=== PATIENT | female | born 2000 | race Caucasian/White ===

== ENCOUNTER 2019-05-06 19:49 | Emergency (ER) | payer BC ==
--- NOTE | 2019-05-06 20:35 | EDM.PDOC ---
ED HPI GENERAL MEDICAL PROBLEM - General Chief Complaint: Respiratory Problem Stated Complaint: FLU SYMPTOMS Time Seen by Provider: 05/06/19 20:32 Source of Information: Reports: Patient History Limitations: Reports: No Limitations - History of Present Illness INITIAL COMMENTS - FREE TEXT/NARRATIVE: 19 y Old female presents to the emergency room with a chief complaint of sore throat nasal discharge and cough with green sputum Onset: Gradual Duration: Week(s):, Getting Worse Severity: Mild Improves with: Reports: None Worsens with: Reports: None Associated Symptoms: Reports: cough w sputum - Related Data Allergies Allergy/AdvReac Type Severity Reaction Status Date / Time No Known Allergies Allergy Verified 05/06/19 20:29 Home Meds: Home Meds . [No Known Home Meds] 05/06/19 [History] ED ROS GENERAL - Review of Systems Review Of Systems: Comprehensive ROS is negative, except as noted in HPI. Constitutional: Reports: No Symptoms HEENT: Reports: Throat Pain Respiratory: Reports: Cough Cardiovascular: Reports: No Symptoms Endocrine: Reports: No Symptoms GI/Abdominal: Reports: No Symptoms : Reports: No Symptoms Musculoskeletal: Reports: No Symptoms Skin: Reports: No Symptoms Neurological: Reports: No Symptoms Psychiatric: Reports: No Symptoms Hematologic/Lymphatic: Reports: No Symptoms Immunologic: Reports: No Symptoms ED EXAM, GENERAL - Physical Exam Exam: See Below Exam Limited By: No Limitations General Appearance: Alert, WD/WN, No Apparent Distress Eye Exam: Bilateral Eye: Normal Fundi, Normal Inspection Ears: Normal External Exam, Normal Canal, Hearing Grossly Normal, Normal TMs Ear Exam: Bilateral Ear: Auricle Normal, Canal Normal, TM normal Nose: Normal Inspection, Normal Mucosa Throat/Mouth: Normal Inspection, Normal Lips, Normal Teeth, Normal Oropharynx, Normal Voice Head: Atraumatic, Normocephalic Neck: Normal Inspection, Supple, Non-Tender, Full Range of Motion Respiratory/Chest: No Respiratory Distress, Lungs Clear, Normal Breath Sounds Cardiovascular: Normal Peripheral Pulses, Regular Rate, Rhythm, No Edema, No JVD GI/Abdominal: Normal Bowel Sounds (Female) Exam: Deferred Rectal (Female) Exam: Deferred Back Exam: Normal Inspection Extremities: Normal Inspection Psychiatric: Normal Affect, Normal Mood Skin Exam: Warm, Dry, Intact, Normal Color Lymphatic: No Adenopathy Course - Vital Signs Last Recorded V/S: Last Vital Signs Temp 97.1 F 05/06/19 20:29 Pulse 80 05/06/19 20:29 Resp 18 05/06/19 20:29 BP 113/73 05/06/19 20:29 Pulse Ox 98 05/06/19 20:29 Departure - Departure Time of Disposition: 05:14 Disposition: Home, Self-Care 01 Clinical Impression: Influenza - Discharge Information Instructions: Influenza, Adult Referrals: PCP,None [Primary Care Provider] - Forms: ED Department Discharge Sepsis Event Note - Focused Exam Vital Signs: Vital Signs Temp Pulse Resp BP Pulse Ox 05/06/19 20:29 97.1 F 80 18 113/73 98 Date Exam was Performed: 05/07/19 Time Exam was Performed: 05:13
== END 2019-05-06 21:36 | disposition left against medical advice (07) ==
LOC: MW.ED 19:49
DX: J11.1 Influenza due to unidentified influenza virus with other respiratory manifestations (principal)
CPT/HCPCS: 99282; 99283

== ENCOUNTER 2020-10-10 21:31 | Emergency (ER) | payer BC ==
--- NOTE | 2020-10-10 21:35 | EDM.PDOC ---
ED HPI GENERAL MEDICAL PROBLEM - General Chief Complaint: General Stated Complaint: SORE THROAT, COUGH, RUNNY NOSE Time Seen by Provider: 10/10/20 21:34 Source of Information: Reports: Patient History Limitations: Reports: No Limitations - History of Present Illness INITIAL COMMENTS - FREE TEXT/NARRATIVE: 20-year-old female no significant past medical history presents for sore throat, nasal congestion, nonproductive cough for the last several days. She denies loss of taste or smell. She has not been vaccinated against Covid. Notes mild chest pain when coughing, no shortness of breath. - Related Data Allergies Allergy/AdvReac Type Severity Reaction Status Date / Time No Known Allergies Allergy Verified 10/10/20 21:43 Home Meds: Home Meds . [No Known Home Meds] 05/06/19 [History] Past Medical History - Past Health History Medical/Surgical History: Denies Medical/Surgical History Social & Family History - Family History Family Medical History: No Pertinent Family History ED ROS GENERAL - Review of Systems Review Of Systems: Comprehensive ROS is negative, except as noted in HPI. ED EXAM, GENERAL - Physical Exam Exam: See Below Exam Limited By: No Limitations General Appearance: Alert, WD/WN, No Apparent Distress Ears: Hearing Grossly Normal Nose: Normal Inspection Throat/Mouth: Normal Inspection, Normal Lips, Normal Teeth, Normal Gums, Normal Oropharynx, Normal Voice, No Airway Compromise Head: Atraumatic, Normocephalic Neck: Normal Inspection Respiratory/Chest: No Respiratory Distress, Lungs Clear, Normal Breath Sounds, No Accessory Muscle Use Cardiovascular: Normal Peripheral Pulses, Regular Rate, Rhythm Extremities: Normal Inspection Neurological: Alert, Normal Cognition, Normal Gait Psychiatric: Normal Affect, Normal Mood Skin Exam: Warm, Dry, Intact, Normal Color Course - Vital Signs Last Recorded V/S: Last Vital Signs Temp 97.8 F 10/10/20 21:41 Pulse 73 10/10/20 21:41 Resp 16 10/10/20 21:41 BP 117/85 10/10/20 21:41 Pulse Ox 95 10/10/20 21:41 - Orders/Labs/Meds Orders: Active Orders 24 hr Category Date Time Status Penicillin G Benzathine [Bicillin L-A] Med 10/10/20 22:41 Once 1.2 millunits IM ONETIME ONE Labs: Laboratory Tests 10/10/20 10/10/20 Range/Units 21:49 21:55 Influenza Type A RNA NEGATIVE (NEGATIVE) Influenza Type B RNA NEGATIVE (NEGATIVE) SARS-CoV-2 RNA (SHERRIE) NEGATIVE (NEGATIVE) Group A Strep (PCR) DETECTED H (NOT DETECT) - Re-Assessments/Exams Free Text/Narrative Re-Assessment/Exam: 10/10/20 21:45 We will get Covid, flu, strep swabs. Will provide patient with resources for COVID-19 vaccination. 10/10/20 22:42 Covid test negative. Streptococcal pharyngitis test is positive. Will give Bicillin 1,200,000 units IM. Departure - Departure Time of Disposition: 22:42 Disposition: Home, Self-Care 01 Condition: Good Clinical Impression: Strep pharyngitis - Discharge Information Instructions: Pharyngitis Referrals: PCP,None [Primary Care Provider] - Forms: ED Department Discharge Additional Instructions: Your Covid and influenza swabs were all negative. You can use the website below to find a location that is giving out free COVID-19 vaccinations. COVID-19 vaccination is the best way to keep you, your family, and your community safe. https://www.health.[place].gov/covidvaccinelocator Your strep throat swab was positive. You were given a long acting penicillin shot for this. The following information is given to patients seen in the emergency department who are being discharged to home. This information is to outline your options for follow-up care. We provide all patients seen in our emergency department with a follow-up referral. The need for follow-up, as well as the timing and circumstances, are variable depending upon the specifics of your emergency department visit. If you don't have a primary care physician on staff, we will provide you with a referral. We always advise you to contact your personal physician following an emergency department visit to inform them of the circumstance of the visit and for follow-up with them and/or the need for any referrals to a consulting specialist. The emergency department will also refer you to a specialist when appropriate. This referral assures that you have the opportunity for follow-up care with a specialist. All of these measure are taken in an effort to provide you with optimal care, which includes your follow-up. Under all circumstances we always encourage you to contact your private physician who remains a resource for coordinating your care. When calling for follow-up care, please make the office aware that this follow-up is from your recent emergency room visit. If for any reason you are refused follow-up, please contact the [facility] Department at and asked to speak to the emergency department charge nurse. Please follow up with your primary care physician. If you do not have a primary care physician, see below: [facility] [id number], [place] [id number] My [facility] [address] [place] [address] [facility] [address], [place] [address] Sepsis Event Note (ED) - Focused Exam Vital Signs: Vital Signs Temp Pulse Resp BP Pulse Ox 10/10/20 21:41 97.8 F 73 16 117/85 95 - My Orders Last 24 Hours: My Active Orders 10/10/20 22:41 Penicillin G Benzathine [Bicillin L-A] 1.2 millunits IM ONETIME ONE - Assessment/Plan Last 24 Hours: My Active Orders 10/10/20 22:41 Penicillin G Benzathine [Bicillin L-A] 1.2 millunits IM ONETIME ONE
[2020-10-10 22:34] LABS: CORONAVIRUS COVID-19 NAA NEGATIVE (NEGATIVE); INFLUENZA A NAA NEGATIVE (NEGATIVE); INFLUENZA B NAA NEGATIVE (NEGATIVE)
[2020-10-10] MEDS ORDERED: Penicillin G Benzathine 1,200,000 Units/2 ML Syringe IM ONE (22:41)
== END 2020-10-10 23:29 | disposition home or self-care (01) ==
LOC: MW.ED 21:31
DX: J02.0 Streptococcal pharyngitis (principal); Z20.822 Contact with and (suspected) exposure to COVID-19
CPT/HCPCS: 0240U; 87651; 96372; 99283; J0561; 99282

== ENCOUNTER 2023-07-18 17:34 | Emergency (ER) | payer BC | END 2023-07-18 19:15 | disposition home or self-care (01) | LOC: MW.ED 17:34 | DX: S93.401A Sprain of unspecified ligament of right ankle, initial encounter (principal); W18.40XA Slipping, tripping and stumbling without falling, unspecified, initial encounter; Y99.0 Civilian activity done for income or pay; Z75.8 Other problems related to medical facilities and other health care | CPT/HCPCS: 73610-26-RT; 73610-RT; 99283 ==

== ENCOUNTER 2024-11-07 16:50 | Emergency (ER) | payer SELFPAY ==
[2024-11-07] MEDS: Lidocaine 2% Viscous Solution 15 ML UD PO ONE (18:10)
[2024-11-07] MEDS: Benzocaine 20% Topical Spray UD MUCMEM ONE (18:11)
== END 2024-11-07 18:15 | disposition home or self-care (01) ==
LOC: MW.ED 16:50
DX: K03.81 Cracked tooth (principal); F17.200 Nicotine dependence, unspecified, uncomplicated; Z75.3 Unavailability and inaccessibility of health-care facilities
CPT/HCPCS: 99282; A9270